=== PATIENT | male | born 1950 | race Asian ===

== ENCOUNTER → 2018-08-08 | Outpatient (CLI) | payer MEDICARE ==
--- NOTE | 2018-08-08 17:00 | RAD ---
Bone densitometry scan, 08/08/2018: HISTORY: Osteoporosis screening The lumbar spine and left wrist were examined utilizing a DEXA technique. The bone mineral density in the lumbar spine as measured from the L1-L4 levels is 1.71 g/sq cm. This yields a T score of 4.0 which is in the normal range. Hypertrophic degenerative change may be elevating this measurement. The T score at the left wrist is -4.4 indicating osteoporosis. IMPRESSION: 1. Osteoporosis at the left wrist. 2. The bone mineral density in the lumbar spine is in the normal range, although hypertrophic degenerative change may be elevating that measurement. Electronically signed by: Rajinder Mota MD (08/08/2018 4:57 PM) [facility]
== END | disposition home or self-care (01) ==
LOC: DXRAD 13:45
PROVIDERS: ATTEND Family Medicine
DX: M81.0 Age-related osteoporosis without current pathological fracture (principal); M47.816 Spondylosis without myelopathy or radiculopathy, lumbar region; M89.38 Hypertrophy of bone, other site
CPT/HCPCS: 77080; 77081

== ENCOUNTER → 2018-09-04 | Outpatient (CLI) | payer MEDICARE ==
--- NOTE | 2018-09-04 15:26 | RAD ---
5 view skull series Clinical indications: Crushing injury to left ear. Head injury. FINDINGS: No skull fracture is evident. No lytic process is evident. No opacification of the paranasal sinuses is seen. No opacification of the mastoid sinuses is seen. IMPRESSION: No skull fracture. Electronically signed by: Neftaly William MD (09/04/2018 3:23 PM) [id number]
== END | disposition home or self-care (01) ==
LOC: DXRAD 12:39
PROVIDERS: ATTEND Family Medicine
DX: S07.1XXA Crushing injury of skull, initial encounter (principal); X58.XXXA Exposure to other specified factors, initial encounter; Y93.89 Activity, other specified; Y92.89 Other specified places as the place of occurrence of the external cause; Y99.8 Other external cause status
CPT/HCPCS: 70260

== ENCOUNTER → 2019-11-12 | Outpatient (CLI) | payer MEDICARE ==
[2019-11-12 10:10] VITALS: BP 127/71
--- NOTE | 2019-11-12 10:10 | NUR ---
PT AMBULATED TO SN[facility] 130. PT'S VS WERE TAKEN AND PT WAS INSTRUCTED TO LAY FLAT IN THE BED. THIS NURSE SCANNED HIS BLADDER WITH A TOTAL OF 86 ML. THEN PT WAS ASKED TO URINATE FOR A POST VOID SCAN, WITH A TOTAL OF 26 ML. PT TOLERATED WELL. PT WAS SENT WITH COPIES OF SCANS AND INSTRUCTED TO TAKE THEM TO DR. MALIK.
--- NOTE | 2019-11-12 11:07 | NUR ---
PT AMBULATED OFF UNIT AND CALL PLACED TO COMPLETE FAMILY CARE REGARDING RESULTS OF SCAN. RESULTS GIVEN TO ADELINE. SHE REQUESTED WE SENT OVER THE BLADDER SCANS, THIS NURSE INFORMED HER THAT THE SCANS WERE SENT WITH PATIENT AND HE WAS INSTRUCTED TO GIVE THEM TO DR. MALIK. THE NURSE SAID SHE WOULD PASS THE INFORMATION ON TO
== END | disposition home or self-care (01) ==
LOC: OPINF 09:57
PROVIDERS: ATTEND Family Medicine
DX: N39.46 Mixed incontinence (principal); M81.0 Age-related osteoporosis without current pathological fracture
CPT/HCPCS: 51798

== ENCOUNTER → 2020-04-30 | Outpatient (CLI) | payer MEDICARE, OTHER ==
[2019-11-12 10:10] VITALS: BP 127/71
--- NOTE | 2020-04-30 14:21 | RAD ---
EXAM: Bilateral lower extremity arterial Doppler sonogram. HISTORY: Peripheral vascular disease. Atherosclerosis. TECHNIQUE: Parikh scale and color Doppler sonographic imaging of the lower extremity arteries with spec tral analysis was performed. COMPARISON: None. FINDINGS: There are normal triphasic waveforms throughout the left lower extremity arteries. There ar e monophasic waveforms within the right anterior tibial and dorsalis pedis arteries, there is a bipha sic waveform within the right deep femoral artery and triphasic waveforms throughout the remainder of the right lower extremity arteries. There are mildly elevated peak systolic velocities within the co mmon femoral arteries, measuring 161 cm/s on the right and 155 cm/s on the left. IMPRESSION: 1. Suspected mild stenosis involving the common femoral arteries. 2. Abnormal monophasic waveforms of the right anterior tibial and dorsalis pedis arteries, suggesting hemodynamically significant proximal stenosis. 3. No evidence of arterial occlusion. Electronically signed by: Ann Marie Castro MD (04/30/2020 2:19 PM) [id number]
== END ==
LOC: US 13:20
PROVIDERS: ATTEND Podiatrist Foot & Ankle Surgery
DX: I73.9 Peripheral vascular disease, unspecified (principal)
CPT/HCPCS: 93925

== ENCOUNTER → 2020-06-06 | Outpatient (CLI) | payer OTHER ==
[2019-11-12 10:10] VITALS: BP 127/71
[2020-06-06] MEDS: IOHEXOL 350 MG/ML 100 ML VIAL. IV ONE (10:01)
--- NOTE | 2020-06-06 11:27 | RAD ---
Exam: US BILATERAL LOWEREXTREMITY VENOUS DOPPLER Indication: BLE EDEMA Technique: Color-flow and pulsed wave duplex ultrasound with compression of venous structures of th e bilateral lower extremities. Comparison: None Available. Findings: Duplex ultrasound with compression of the deep venous structures of the bilateral lower ext remities from the common femoral vein through the popliteal vein is negative for DVT. The posterior t ibial and peroneal veins are segmentally visualized and patent where seen. Normal venous waveforms an d augmentation are noted throughout. Impression: No evidence for DVT in the bilateral lower extremities. Electronically signed by: Lb Velásquez MD (06/06/2020 11:24 AM) [id number]
--- NOTE | 2020-06-06 13:55 | RAD ---
PQRS Compliance Statement: One or more of the following individualized dose reduction techniques were utilized for this examinat ion: 1. Automated exposure control 2. Adjustment of the mA and/or kV according to patient size 3. Use of iterative reconstruction technique CTA AORTA/RUNOFF W/WO +POST 06/06/2020 9:53 AM Indication: Atherosclerosis, stenosis COMPARISON: None available. TECHNIQUE: Multiple axial CT images of the abdomen, pelvis and bilateral lower extremity arterial sys tem was performed after the intravenous administration of 100 cc nonionic contrast. Coronal and sagit gisela reformats are provided. Maximum intensity projection images of the aorta, pelvic and lower extrem ity arterial system are provided. FINDINGS: There is a 3 mm subpleural solid noncalcified pulmonary nodule in the lingula (series 4, image 4). Mi ld bronchial wall thickening suggestive of nonspecific bronchitis. Heart size within normal limits. H ypervascular hepatic lesion measuring 1.4 x 1.5 cm is suggestive of a flash fill hemangioma. Spleen, adrenal glands and pancreas are normal in appearance. Duodenal diverticulum measures 2.7 x 2.9 cm. No pathologically enlarged lymph nodes are identified in abdomen and pelvis. There is no free fluid or free intraperitoneal air. There is a extratesticular cystic lesion in the left scrotum measuring 6.8 x 6.2 cm. Inferior pole left renal cyst measures 1.3 cm. Bilobed cyst in the medial interpolar right kidney measures 1.19. No suspicious renal mass or hydronephrosis. Mild diverticulosis. Small and larg e bowel are normal in caliber. There is no evidence for bowel obstruction. There are no pericolonic i nflammatory changes. A normal, nondilated appendix is visualized without adjacent inflammatory change s. Bilateral total hip arthroplasty changes are identified. Abdominal aorta at the hiatus measures 2.5 x 2.4 cm. Celiac axis is widely patent. Superior mesenteri c artery is widely patent with minor calcified plaque at the origin. Single bilateral renal arteries are widely patent. Ectasia of infrarenal abdominal aorta measures 2.2 x 2 point. There is a dissectio n flap infrarenal abdominal aorta with the lumen measuring up to 2.1 x 2.1 cm. Symmetric thrombus is identified along the left ventrolateral infrarenal abdominal aorta. Right: Common iliac artery: Normal in course and caliber. External iliac artery: Normal in course and caliber. Internal iliac artery: Mild calcified atheromatous plaque is identified. Normal in course and caliber . Common femoral artery: Normal in course and caliber. Deep femoral artery: Normal in course and caliber. Superficial femoral artery: Proximal, mid and distal superficial femoral artery are normal in course and caliber. Popliteal artery: Normal in course and caliber Three-vessel runoff: Patent to the foot. Left: Common iliac artery: Normal in course and caliber. External iliac artery: Normal in course and caliber. Internal iliac artery: Noncalcified atheromatous plaque is identified. There is a dissection flap inv olving the left internal iliac artery with fusiform aneurysm measuring up to 8.5 mm. Common femoral artery: Normal in course and caliber. Deep femoral artery: Normal in course and caliber. Superficial femoral artery: Proximal, mid and distal superficial femoral artery are normal in course and caliber. Popliteal artery: Normal in course and caliber Three-vessel runoff: Patent to the foot. IMPRESSION: 1. Infrarenal abdominal aortic dissection involving a short segment without aneurysm or rupture. Ecce ntric plaque is identified. 2. 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 3. Normal bilateral lower extremity runoff. 4. Extratesticular cystic lesion in the left scrotum measures 6.8 x 6.2 cm. Correlate with spermatoce le. Scrotal ultrasound could be of benefit. FOR INTERNAL CODING PURPOSES Critical result: Findings discussed with nurse for Dr. Spears at 06/06/2020 1:51 PM. RESULT CODE: (C) Electronically signed by: Vikki Betancur MD (06/06/2020 1:53 PM) [id number]
== END ==
LOC: US 09:20
PROVIDERS: ATTEND Family Medicine
DX: I72.3 Aneurysm of iliac artery (principal); L72.8 Other follicular cysts of the skin and subcutaneous tissue; R91.1 Solitary pulmonary nodule; R60.0 Localized edema
CPT/HCPCS: 75635; 93970; Q9967

== ENCOUNTER → 2020-07-29 | Outpatient (CLI) | payer OTHER ==
[2019-11-12 10:10] VITALS: BP 127/71
--- NOTE | 2020-07-29 15:31 | RAD ---
EXAM: DUAL ENERGY X-RAY ABSORPTIOMETRY (DEXA). HISTORY: Osteoporosis screening. FINDINGS: The lowest measured T-score is -3.0 in the right forearm, based on a bone mineral density o f 0.302 g/cm^2. Refer to the worksheets for full detail. The bone mineral density measured at the lumbar spine corresponds with a T-score of 5.1. No comparison examinations are available. IMPRESSION: 1. Osteoporosis. Bone mineral density yields a T-score of -2.5 or less. Fracture risk is high. 2. FRAX report: Not calculated. METHODOLOGY: Dual energy x-ray absorptiometry was performed to measure bone mineral density. The foll owing analysis is based on the 2019 Official Positions of the International Society for Clinical Dens itometry: Measurements of the hips and the average of L1-L4 are preferred. When the spine and/or hip cannot be feasibly measured or interpreted, or in the setting of hyperparathyroidism, distal radial bone minera l density may be measured. The lumbar spine T-score is based on the average bone mineral density of L1-L4. In the setting of art ifact or anatomic abnormality, some lumbar levels may be excluded, and the remaining levels used for calculation. A single lumbar level is not used for diagnosis, and if only a single level is available for assessment, another anatomic site will be used to assign a diagnosis. The hip T-score is based on the bone mineral density measurement of the femoral neck or total proxima l femur of either side, whichever is lowest. Bilateral mean values are not used for diagnosis. The forearm T-score is derived from 33% of the distal radius of the nondominant forearm. Electronically signed by: Ann Marie Castro MD (07/29/2020 3:29 PM) [id number]
== END ==
LOC: DXRAD 13:25
PROVIDERS: ATTEND Family Medicine
DX: M81.8 Other osteoporosis without current pathological fracture (principal); Z00.00 Encounter for general adult medical examination without abnormal findings
CPT/HCPCS: 77080

== ENCOUNTER → 2020-08-07 | Outpatient (CLI) | payer OTHER ==
[2019-11-12 10:10] VITALS: BP 127/71
[~2020-08-07] MED LIST: REGADENOSON 0.4 MG/5 ML DISP.SYRIN. IV ONE
--- NOTE | 2020-08-07 11:13 | RAD ---
MR#: [id number] Date of Study: 08/07/2020 Ordering Physician: ABDOUL JOHNSON, Referring Physician: ABDOUL JOHNSON, Tech: Leticia Patel Brittaney,[facility] APPROVED REPORT Patient Location: OUT-PATIENT Laterality:Bilateral Indications Bruit Dizziness and Vertigo Grayscale images of the bilateral carotid vessels demonstrates mild to moderate intimal hyperplasia a nd mild atherosclerotic plaque. Based on spectral waveforms and color Doppler overall there is 0 to less than 50% stenosis in the yvan ateral extracranial internal carotid vessels. Normal bilateral ICA to CCA ratios and antegrade verte bral velocities are noted. Risk Factors Smoking Doppler Spectral Velocity Analysis Right Left pCCA 96/17 cm/spCCA 97/27 cm/s mCCA 91/27 cm/smCCA 114/38 cm/s dCCA 80/24 cm/sdCCA 82/24 cm/s ECA 66/10 cm/sECA 80/10 cm/s pICA 61/21 cm/spICA 87/31 cm/s Eitan 47/16 cm/smICA 91/34 cm/s dICA 80/31 cm/sdICA 91/34 cm/s Vert. 53/14 cm/sVert. 96/29 cm/s ICA/CCA 0.83ICA/CCA 0.94 Critical Notification Critical Value: No <Conclusion> 1. No significant extracranial carotid obstructive disease 2. Technically limited study. Signed by : Abdoul Johnson, Electronically Approved : 08/07/2020 11:12:49
--- NOTE | 2020-08-08 11:02 | RAD ---
MR#: [id number] Date of Study: 08/07/2020 Ordering Physician: ABDOUL BABIN, Referring Physician: RADHA MILES Tech: EMILY Collins APPROVED REPORT Test Type: Pharmacological Stress Nurse/Tech: EMILY Collins Test Indications: MORALES Cardiac History: none - COPD Medications: see EHR Medical History: see EHR Resting ECG: SR Resting Heart Rate: 64 bpm Resting Blood Pressure: 137/71mmHg Pretest Chest Pain: None Nurse/Tech Notes Consent: The procedure was explained to the patient in lay terms. Informed consent was witnessed. Earnest eout was entered into [employer]. History and Stress Test performed by EMILY Collins Pharm. Details Pharmacologic stress testing was performed using 0.4mg per 5ml of regadenoson given intravenously ove r 7-10 seconds. POST EXERCISE Max HR: 101 bpm Max Blood Pressure: 147/74mmHg Blood Pressure response to exercise: Normal blood pressure response during stress. Chest Pain: No. INTERPRETATION Stress EKG Conclusion: Resting EKG shows a sinus rhythm and mild nonspecific T wave changes. The stress EKG shows no significant change from baseline. No EKG evidence of stress-induced ischemia. Imaging Protocol IMAGE PROTOCOL: Rest Tc-99m/stress Tc-99m 1 day Rest: Stress: Viability: Radiopharm.Tc99m CupttawymUk50p Sestamibi Nexy66sLj 31.5mCi Duration 15min. 10min. Img Date 08/07/2020 08/07/2020 Inj-Img Xhnj40pgw. 60min. Rest Admin Site:IV - Right HandAdministrator: EMILY Collins Stress Admin Site: IV - Right HandAdministrator: EMILY Collins STRESS DATA End Diast. Vol.84.0mlAv. Heart Rate85.0bpm End Syst. Vol.11.0mlCO Index BSA0.0L/min Myocardial Ppwi060.0gEject. Arezjpyo72.0% Stress Rates Pk. Fill Rate2.80EDV/secLVtime Pk. Fill 132.30msec Pk. Empty Rate4.46ESV/secLVtime Pk. Zprog802.89msec 1/3 Pk. Fill1.49EDV/sec Stress Scores Regional WT1.00Summed WT3.00 Regional WM0.00Summed WM0.00 LV Perfusion The stress scans show no significant defects. The rest scans show no significant defects. Nuclear imaging shows no reversible ischemia or infarct. Wall Motion Left ventricular systolic function is normal with an ejection fraction of greater than 70%. LV Perf. Quant 17 Seg. SSS0.00 17 Seg. SRS2.00 17 Seg. SDS0.00 Stress Defect Extent (% LAD)0.00Rest Defect Extent (% LAD)0.00Rev. Defect Extent (% LAD)0.00 Stress Defect Extent (% LCX) 2.50Rest Defect Extent (% LCX)11.30Rev. Defect Extent (% LCX)0.00 Stress Defect Extent (% RCA)0.00Rest Defect Extent (% RCA)0.00Rev. Defect Extent (% RCA)0.00 Stress Defect Extent (% ANNELIESE)0.90Rest Defect Extent (% ANNELIESE)4.10Rev. Defect Extent (% ANNELIESE)0.00 IMPRESSION Comparison of Rest to Stress Regional Wall Thickening: No Change, Normal, Mildly Decreased Wall Thic kening, Moderately Decreased Wall Thickening, Severely Decreased Wall Thickening, Hyperdynamic Wall T hickening Conclusion 1. No EKG evidence of stress-induced ischemia. 2. Nuclear imaging shows no reversible ischemia or infarct. 3. Normal left ventricular systolic function with an ejection fraction of greater than 70%. 4. Low risk Lexiscan nuclear stress test. Signed by : Clifford Andrews MD Electronically Approved : 08/08/2020 11:01:51
== END ==
LOC: NM 09:19
PROVIDERS: ATTEND Internal Medicine Cardiovascular Disease
DX: I65.23 Occlusion and stenosis of bilateral carotid arteries (principal); R42 Dizziness and giddiness; Z87.891 Personal history of nicotine dependence
CPT/HCPCS: 78452; 93017; 93880; A9500; J2785

== ENCOUNTER → 2020-09-08 | Outpatient (CLI) | payer OTHER ==
[2019-11-12 10:10] VITALS: BP 127/71
--- NOTE | 2020-09-08 13:53 | RAD ---
CLINICAL HISTORY: Spermatocele COMPARISON: None TECHNIQUE: Ultrasound images of the scrotum was performed with pandya-scale, color and spectral Dopple r. FINDINGS: The right testicle measures 3.7 x 2.3 x 1.9 cm. The right testicle is homogeneous with normal blood f low. No testicular mass. The right epididymis is normal in appearance. Small hydrocele. The left testicle measures 4.1 x 2.7 x 1.6 and is homogeneous with normal blood flow. No testicular m ass. There is mild mass effect on the left testicle from a large extratesticular cyst measuring 6.9 x 2.6 x 5.1 cm just superior to the testicle. The extratesticular cyst is hypoechoic with multiple fin e low-level internal echoes, likely a spermatocele. There is a 4 mm calcification along the surface o f the testicle consistent with a scrotalith. IMPRESSION: 7 cm complex extratesticular cyst with multiple fine low-level internal echoes just superior to the l eft testicle, likely a spermatocele. Electronically signed by: Maria G Chapman MD (09/08/2020 1:50 PM) [id number]
== END ==
LOC: US 09:55
PROVIDERS: ATTEND Family Medicine
DX: N43.3 Hydrocele, unspecified (principal); N43.40 Spermatocele of epididymis, unspecified; N44.2 Benign cyst of testis
CPT/HCPCS: 76870

== ENCOUNTER → 2021-01-26 | Outpatient (CLI) | payer OTHER ==
[2019-11-12 10:10] VITALS: BP 127/71
--- NOTE | 2021-01-27 11:17 | RAD ---
XR SHOULDER 2+ VIEWS BILAT History: Reason: BILATERAL SHOULDER PAIN / Spl. Instructions: / History: Technique: 3 views bilateral shoulders Comparison: None. Findings: Left shoulder: No dislocation. No acute fracture. Mild left acromioclavicular and glenohumeral DJD. Right shoulder: No dislocation. No acute fracture. Impression: 1. Mild left glenohumeral and acromioclavicular DJD. Electronically signed by: Reese Walter DO (01/27/2021 11:14 AM) [id number]
== END ==
LOC: RAD 13:20
PROVIDERS: ATTEND Family Medicine
DX: M19.012 Primary osteoarthritis, left shoulder (principal)
CPT/HCPCS: 73030-50

== ENCOUNTER → 2021-05-12 | Outpatient (CLI) | payer OTHER ==
[2019-11-12 10:10] VITALS: BP 127/71
--- NOTE | 2021-05-13 10:00 | CARD ---
MR#: [id number] Date of Study: 05/12/2021 Ordering Physician: ABDOUL BABIN, Referring Physician: ABDOUL BABIN, Tech: Raul Dunlap [facility] APPROVED REPORT EXAM: Two-dimensional and M-mode echocardiogram with Doppler and color Doppler. Other Information Quality : FairHR: 65bpm Rhythm : NSR INDICATION Dyspnea RISK FACTORS Smoking 2D DIMENSIONS Left Atrium(2D)3.9 (1.6-4.0cm)IVSd1.0 (0.7-1.1cm) Aortic Root(2D)3.2 (2.0-3.7cm)LVDd4.5 (3.9-5.9cm) LVOT Diameter2.4 (1.8-2.4cm)PWd1.0 (0.7-1.1cm) LA Vlabvg96 (18-58mL)LVDs2.4 (2.5-4.0cm) FS (%) 46.8 %SV70.7 ml Aortic Valve AoV Peak Franki.151.6cm/sAoV VTI29.9cm AO Peak GR.9.2mmHgLVOT Peak Franki.105.9cm/s LVOT VTI 24.55cmAO Mean GR.5mmHg INDRA (VMAX)3.99pu4ZCF (VTI)3.58cm2 Mitral Valve MV E Fzacdcef51.0cm/sMV E Peak Gr.4mmHg MV DECEL [id number] A Zifbpyha720.9cm/s MV E Mean Gr.2mmHgE/A Ratio0.7 Tricuspid Valve TR P. Alhqvblg574fq/sTR Peak Gr.21mmHg Pulmonary Vein S1 Hcxygcof30.7cm/sD2 Dguqyfxo69.7cm/s LEFT VENTRICLE The left ventricle is normal size. There is normal left ventricular wall thickness. The left ventricu lar systolic function is normal and the ejection fraction is within normal range. LV ejection fractio n of 55 to 60%. There is normal LV segmental wall motion. Transmitral Doppler flow pattern is Grade I-abnormal relaxation pattern. No left ventricle thrombus noted on this study. There is no ventricula r septal defect visualized. There is no left ventricular aneurysm. There is no mass noted in the left ventricle. RIGHT VENTRICLE The right ventricle is normal size. There is normal right ventricular wall thickness. The right ventr icular systolic function is normal. ATRIA The left atrium is borderline dilated. The right atrium size is normal. The interatrial septum is int act with no evidence for an atrial septal defect or patent foramen ovale as noted on 2-D or Doppler i maging. AORTIC VALVE The aortic valve is thickened but opens well. Doppler and Color Flow revealed no significant aortic r egurgitation. There is no significant aortic valvular stenosis. There is no aortic valvular vegetatio n. MITRAL VALVE The mitral valve is normal in structure and function. There is no evidence of mitral valve prolapse. There is no mitral valve stenosis. Doppler and Color Flow revealed trace mitral valve regurgitation. TRICUSPID VALVE The tricuspid valve is normal in structure and function. Doppler and Color Flow revealed no tricuspid valve regurgitation noted. There is no tricuspid valve prolapse or vegetation. There is no tricuspid valve stenosis. PULMONIC VALVE The pulmonary valve is normal in structure and function. Doppler and Color Flow revealed no pulmonic valvular regurgitation. There is no pulmonic valvular stenosis. GREAT VESSELS The aortic root is normal in size. The ascending aorta is normal in size. The pulmonary artery is nor mal. The IVC is normal in size and collapses >50% with inspiration. PERICARDIAL EFFUSION There is no pleural effusion. There is no evidence of significant pericardial effusion. Critical Notification Critical Value: No <Conclusion> The left ventricle is normal size. The left ventricular systolic function is normal and the ejection fraction is within normal range. LV ejection fraction of 55 to 60%. There is normal LV segmental wall motion. Doppler and Color Flow revealed no significant aortic regurgitation. There is no significant aortic valvular stenosis. Doppler and Color Flow revealed trace mitral valve regurgitation. Doppler and Color Flow revealed no tricuspid valve regurgitation noted. Signed by : Clifford Andrews MD Electronically Approved : 05/13/2021 09:59:42
== END ==
LOC: ECHO 08:54
PROVIDERS: ATTEND Internal Medicine Cardiovascular Disease
DX: R06.00 Dyspnea, unspecified (principal)
CPT/HCPCS: 93306

== ENCOUNTER → 2021-05-13 | Outpatient (CLI) | payer OTHER ==
[2019-11-12 10:10] VITALS: BP 127/71
--- NOTE | 2021-05-13 16:45 | RAD ---
XR HAND_LEFT 3 VIEWS 05/13/2021 Reason: PAIN Comparison: None Technique: 3 views of the left hand Findings: There is no acute fracture or dislocation. There is joint space narrowing and mild osteophytosis at t he interphalangeal joints. No significant erosive change. Degenerative change at the first carpometac arpal joint. Impression: Degenerative changes in a typical pattern for osteoarthritis. Electronically signed by: Aime Andersen MD (05/13/2021 4:43 PM) [id number]
== END ==
LOC: RAD 13:52
PROVIDERS: ATTEND Orthopaedic Surgery Sports Medicine
DX: M19.042 Primary osteoarthritis, left hand (principal); M25.742 Osteophyte, left hand
CPT/HCPCS: 73130

== ENCOUNTER → 2021-06-24 | Outpatient (CLI) | payer OTHER ==
[2019-11-12 10:10] VITALS: BP 127/71
--- NOTE | 2021-06-24 13:53 | RAD ---
Single view pelvis, two-view left hip, three-view left knee and two-view left tibia-fibula dated 2021 COMPARISON: None. INDICATION: Pain FINDINGS: AP view pelvis and two-view left hip show normal bony alignment. No displaced fracture. Pelvic ring i s intact. There is evidence of prior bilateral total hip arthroplasty. No periprosthetic fracture or malalignment. Spondylotic changes the lower lumbar spine Three-view left knee show normal bony alignment. No displaced fracture. Mild tricompartmental hypertr ophic change. No apparent joint effusion or loose body. 2 views left tibia fibula show normal bony alignment. No displaced fracture. No periostitis or bone d estruction. IMPRESSION: 1. No acute radiographic abnormality. 2. Degenerative changes as above. Electronically signed by: Billy Oshea MD (06/24/2021 1:50 PM) [facility]
--- NOTE | 2021-06-24 13:58 | RAD ---
CT abdomen pelvis without contrast dated 06/24/2021. COMPARISON: None INDICATION: Pain. TECHNIQUE: Diffuse axial imaging the M pelvis performed without the administration of IV or oral contrast. One or more of the following individualized dose reduction techniques were utilized for this examinat ion: 1. Automated exposure control 2. Adjustment of the mA and/or kV according to patient size 3. Use of iterative reconstruction technique FINDINGS: Limited images of lung bases show linear bands of increased density in the lingula and bilateral lowe r lobes, likely scar or atelectasis. Heart size within normal limits. No pleural or pericardial effus ion. Solid abdominal viscera not well evaluated in the absence of contrast material. No apparent attenuati on abnormality of the liver or spleen. Pancreas, adrenal glands unremarkable. Gallbladder is collapse d and not well evaluated. Kidneys are symmetric in size. There are couple of well circumscribed low-density foci at the medial midpole right kidney that measure Hounsfield value of 4, likely cysts. Is also a small exophytic focu s off the lower pole left kidney with Hounsfield of 4. No stone or hydronephrosis. Unopacified GI tract normal in caliber and contour. No bowel wall thickening. No inflammatory strandi ng in the mesentery. The appendix is normal in caliber. No ascites or lymphadenopathy. Abdominal aort a normal in caliber. There is a left-sided IVC. Images of pelvis show nondistended urinary bladder. Evaluation is limited due to beam Pinto artifac t from bilateral hip prosthesis. There is no free fluid or pelvic lymphadenopathy. The prostate gland is not well evaluated. Bone window show no acute findings. Grade 2 spondylolisthesis and bilateral spondylolysis at L5-S1. T here is multilevel spondylosis. IMPRESSION: 1. No acute abnormality of abdomen or pelvis. No evidence of renal stone or hydronephrosis. 2. Exophytic low-density foci at each kidney, likely small cysts. 3. Normal appendix. 4. Grade 2 spondylolisthesis and bilateral spondylolysis at L5-S1. Electronically signed by: Billy Oshea MD (06/24/2021 1:55 PM) [facility]
== END ==
LOC: CT 12:51
PROVIDERS: ATTEND Family Medicine
DX: M16.12 Unilateral primary osteoarthritis, left hip (principal); M17.12 Unilateral primary osteoarthritis, left knee; M43.17 Spondylolisthesis, lumbosacral region; N23 Unspecified renal colic; M47.816 Spondylosis without myelopathy or radiculopathy, lumbar region; Z96.643 Presence of artificial hip joint, bilateral
CPT/HCPCS: 73502; 73562; 73590; 74176

== ENCOUNTER 2021-06-28 18:43 | Emergency (ER) | payer MEDICARE, OTHER ==
[~2021-06-28] VITALS: Ht 165.1 cm; Wt 72.7 kg
[2021-06-28] MEDS ORDERED: HYDROcodone/APAP 7.5/325MG 1 TAB TABLET PO ONE (19:15)
--- NOTE | 2021-06-28 19:21 | PHYS DOC ---
Past History Past Surgical History: Hip Replacement Additional Past Surgical Histo: bilat hip General Adult EDM: Chief Complaint: HIP PAIN HPI: HPI: 70-year-old male presents with left hip pain. The patient had outpatient imaging done a few days ago at this facility. There did not appear to be any obvious findings. The patient is continuing to have pain so his primary phy sician recommended that he come in the emergency room for evaluation. The patient tells me his primary doctor did not want to prescribe [place] without patient being seen. The patient did not have any falls or trauma. This started about 2 weeks ago. He thinks it started after lifting a 24 pack of water. He denies numbness, tingling, or altered sensation in the leg. He has no other complaints this time. Review of Systems: Review of Systems: Constitutional: Denies fever or chills Eyes: Denies change in visual acuity HENT: Denies nasal congestion or sore throat Respiratory: Denies cough or shortness of breath Cardiovascular: Denies chest pain or edema GI: Denies abdominal pain, nausea, vomiting, bloody stools or diarrhea : Denies dysuria Musculoskeletal: Left hip pain Integument: Denies rash Neurologic: Denies headache, focal weakness or sensory changes Endocrine: Denies polyuria or polydipsia Lymphatic: Denies swollen glands Psychiatric: Denies depression or anxiety Current Medications: Current Meds: Current Medications Medications (Trade) Dose Ordered Sig/Abdirahman Start Time Stop Time Status Last Admin Dose Admin Acetaminophen/ Hydrocodone Bitart (Lortab 7.5/325) 1 tab 1X ONCE 06/28/21 19:15 06/28/21 19:16 UNV Allergies: Allergies: Allergies Coded Allergies Type Severity Reaction Last Updated Verified niacin Allergy Unknown 06/06/20 Yes scopolamine Allergy Unknown 06/06/20 Yes Physical Exam: PE: Constitutional: Well developed, well nourished, no acute distress, non-toxic appearance. [] HENT: Normocephalic, atraumatic, bilateral external ears normal, oropharynx moist, no oral exudates, nose normal. [] Eyes: PERRLA, EOMI, conjunctiva normal, no discharge. [] Neck: Normal range of motion, no tenderness, supple, no stridor. [] Cardiovascular: Heart rate regular rhythm, no murmur [] Lungs & Thorax: Bilateral breath sounds clear to auscultation [] Abdomen: Bowel sounds normal, soft, no tenderness, no masses, no pulsatile masses. [] Skin: Warm, dry, no erythema, no rash. [] Back: No tenderness, no CVA tenderness. [] Extremities: Tenderness over the lateral posterior aspect of the left hip, no obvious deformity. [] Neurologic: Alert and oriented X 3, normal motor function, normal sensory function, no focal deficits noted. [] Psychologic: Affect normal, judgement normal, mood normal. [] Current Patient Data: Vital Signs: Vital Signs Date Time Temp Pulse Resp B/P (MAP) Pulse Ox O2 Delivery O2 Flow Rate FiO2 06/28/21 18:44 98.4 114 18 127/71 (89) 94 Room Air EKG: EKG: [] Radiology/Procedures: Radiology/Procedures: [] Heart Score: C/O Chest Pain: N/A Risk Factors: Risk Factors: DM, Current or recent (<one month) smoker, HTN, HLP, family history of CAD, obesity. Risk Scores: Score 0 - 3: 2.5% MACE over next 6 weeks - Discharge Home Score 4 - 6: 20.3% MACE over next 6 weeks - Admit for Clinical Observation Score 7 - 10: 72.7% MACE over next 6 weeks - Early Invasive Strategies Course & Med Decision Making: Course & Med Decision Making Pertinent Labs and Imaging studies reviewed. (See chart for details) I reviewed the patient's outpatient x-rays. There is no obvious source for the patient's discomfort. CT will not be helpful with bilateral hip replacements. He may need an MRI which will have to be ordered outpatient. I have advised that he follow-up with his primary physician and discuss pediatrics. I will give him [place] in the emergency room and a short prescription for home. He is stable for discharge at this time. [] Dragon Disclaimer: Dragon Disclaimer: This electronic medical record was generated, in whole or in part, using a voice recognition dictation system. Departure Departure: Impression: Primary Impression: Left hip pain Disposition: HOME / SELF CARE / HOMELESS Condition: STABLE Referrals: POLINA MALIK MD (PCP) Patient Instructions: Hip Pain Scripts Hydrocodone/Acetaminophen (Hydrocodone-Acetamin 5-325 mg) 1 Each Tablet 1 EACH PO Q4-6HRS PRN for PAIN, #10 TAB Prov: NELIA WINSTON DO 06/28/21 NELIA WINSTON DO June 28, 2021 19:21
[2021-06-28] MEDS ORDERED: HYDR-2759 PO (19:48)
[2021-06-28 20:13] VITALS: BP 140/82
== END 2021-06-28 20:54 | disposition home or self-care (01) ==
LOC: ER 18:43
DX: M25.552 Pain in left hip (principal); Z96.643 Presence of artificial hip joint, bilateral; Z88.1 Allergy status to other antibiotic agents; Z88.8 Allergy status to other drugs, medicaments and biological substances
CPT/HCPCS: 99284

== ENCOUNTER → 2021-07-10 | Outpatient (CLI) | payer OTHER ==
[2021-06-28 20:13] VITALS: BP 140/82
[~2021-07-10] MED LIST changes: +HYDR-2759 PO; -REGADENOSON 0.4 MG/5 ML DISP.SYRIN. IV ONE
[2021-07-10 14:33] LABS: CALCIUM 9.1 mg/dL (8.5-10.1); CREATININE 1.3 mg/dL (0.7-1.3); GFR 54.4; POTASSIUM 4.5 mmol/L (3.5-5.1)
== END ==
LOC: LAB 13:19
PROVIDERS: ATTEND Family Medicine
DX: R89.9 Unspecified abnormal finding in specimens from other organs, systems and tissues (principal)
CPT/HCPCS: 36415; 80048; 82550